=== PATIENT | female | born 2000 | race Caucasian/White ===

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

== ENCOUNTER 2021-04-23 14:33 | Emergency (ER) | payer OTHER ==
[~2021-04-23] VITALS: Ht 160 cm; Wt 45.4 kg
== END 2021-04-23 19:42 | disposition home or self-care (01) ==
LOC: ER 14:33 → EMR PED 14:48
DX: S13.4XXA Sprain of ligaments of cervical spine, initial encounter (principal); S90.02XA Contusion of left ankle, initial encounter; S70.02XA Contusion of left hip, initial encounter; S70.01XA Contusion of right hip, initial encounter; V49.9XXA Car occupant (driver) (passenger) injured in unspecified traffic accident, initial encounter; Y93.89 Activity, other specified; Y92.488 Other paved roadways as the place of occurrence of the external cause; Y99.8 Other external cause status